=== PATIENT | male | born 1990 | race Caucasian/White ===

== ENCOUNTER 2019-12-20 15:42 | Emergency (ER) | payer MEDICAID ==
[~2019-12-20] VITALS: Ht 167.6 cm; Wt 94.8 kg
[2019-12-20 15:56] VITALS: BP_SYST 121
[2019-12-20 16:10] VITALS: BP_SYST 121
== END 2019-12-20 16:09 | disposition home or self-care (01) ==
LOC: SED 15:42
DX: F41.9 Anxiety disorder, unspecified (principal)
CPT/HCPCS: 99281